=== PATIENT | male | born 1960 | race Caucasian/White ===

== ENCOUNTER → 2017-01-02 | Outpatient (CLI) | payer OTHER ==
[2017-01-02 13:17] LABS: ALKALINE PHOSPHATASE 66 U/L (45-117); ALT/SGPT 79 U/L (12-78); AST/SGOT 49 U/L (15-37); CHOLESTEROL 222 mg/dl (0-200); HDL CHOLESTEROL 44 mg/dl; LDL CHOLESTEROL CALCULATED 109 mg/dl; TRIGLYCERIDES 346 mg/dl (0-150); VERY LOW DENSITY LIPOPROT CALC 69 mg/dl
[2017-01-02 13:27] LABS: ESTIMATED AVERAGE GLUCOSE 160 mg/dl; HA1C FLAG Normal (Normal)
== END | disposition home or self-care (01) ==
LOC: C.LABMFLN 07:33
PROVIDERS: ATTEND Family Medicine
DX: I10 Essential (primary) hypertension (principal); E78.00 Pure hypercholesterolemia, unspecified; Z12.5 Encounter for screening for malignant neoplasm of prostate; R74.0 Nonspecific elevation of levels of transaminase and lactic acid dehydrogenase [LDH]; R73.09 Other abnormal glucose

== ENCOUNTER → 2017-05-15 | Outpatient (CLI) | payer OTHER ==
[2017-05-15 14:22] LABS: ESTIMATED AVERAGE GLUCOSE 169 mg/dl; HA1C FLAG Normal (Normal)
[2017-05-15 14:34] LABS: AST/SGOT 51 U/L (15-37); BLOOD UREA NITROGEN 16 mg/dl (7-18); BUN/CREATININE RATIO 14.6 (10-20); CARBON DIOXIDE 25 mmol/L (21-32); CHLORIDE 105 mmol/L (98-107); CHOLESTEROL 245 mg/dl (0-200); GLUCOSE 192 mg/dl (70-99); SODIUM 138 mmol/L (136-145)
[2017-05-15 14:37] LABS: ALKALINE PHOSPHATASE 71 U/L (45-117); ALT/SGPT 80 U/L (12-78); HDL CHOLESTEROL 49 mg/dl; LDL CHOLESTEROL CALCULATED 118 mg/dl; TRIGLYCERIDES 390 mg/dl (0-150); VERY LOW DENSITY LIPOPROT CALC 78 mg/dl
== END | disposition home or self-care (01) ==
LOC: C.LABMFLN 07:26
PROVIDERS: ATTEND Family Medicine
DX: I10 Essential (primary) hypertension (principal); E78.00 Pure hypercholesterolemia, unspecified; R73.09 Other abnormal glucose; R74.0 Nonspecific elevation of levels of transaminase and lactic acid dehydrogenase [LDH]

== ENCOUNTER → 2017-06-14 | Outpatient (CLI) | payer OTHER ==
[2017-06-14 18:17] LABS: RATIO 8.8 mcg/mg (0-30.0)
== END | disposition home or self-care (01) ==
LOC: C.LABMFLN 16:41
PROVIDERS: ATTEND Family Medicine
DX: E11.65 Type 2 diabetes mellitus with hyperglycemia (principal)

== ENCOUNTER → 2017-07-27 | Outpatient (CLI) | payer OTHER ==
[2017-07-27 18:17] LABS: ALT/SGPT 60 U/L (12-78); AST/SGOT 34 U/L (15-37); CREATININE 1.08 mg/dl (0.60-1.40); POTASSIUM 4.1 mmol/L (3.5-5.1)
== END | disposition home or self-care (01) ==
LOC: C.LABMFLN 16:30
PROVIDERS: ATTEND Family Medicine
DX: I10 Essential (primary) hypertension (principal); R74.0 Nonspecific elevation of levels of transaminase and lactic acid dehydrogenase [LDH]

== ENCOUNTER → 2017-10-30 | Outpatient (CLI) | payer OTHER ==
[2017-10-30 13:07] LABS: HEMOGLOBIN A1C 6.8 % (4.5-5.6)
[2017-10-30 13:24] LABS: BLOOD UREA NITROGEN 19 mg/dl (7-18); CREATININE 1.19 mg/dl (0.60-1.40); GLUCOSE 153 mg/dl (70-99)
[2017-10-30 13:25] LABS: ALT/SGPT 63 U/L (12-78); CALCIUM 8.9 mg/dl (8.5-10.1); CARBON DIOXIDE 29 mmol/L (21-32); CHOLESTEROL 200 mg/dl (0-200); POTASSIUM 3.9 mmol/L (3.5-5.1); SODIUM 138 mmol/L (136-145)
[2017-10-30 13:27] LABS: ALKALINE PHOSPHATASE 60 U/L (45-117); AST/SGOT 35 U/L (15-37); LDL CHOLESTEROL CALCULATED 101 mg/dl; TOTAL PROTEIN 7.5 gm/dl (6.4-8.2)
== END | disposition home or self-care (01) ==
LOC: C.LABMFLN 07:23
PROVIDERS: ATTEND Family Medicine
DX: I10 Essential (primary) hypertension (principal); R74.0 Nonspecific elevation of levels of transaminase and lactic acid dehydrogenase [LDH]; E11.65 Type 2 diabetes mellitus with hyperglycemia

== ENCOUNTER 2019-01-24 05:20 | Inpatient (IN) ==
--- NOTE | 2019-01-10 14:19 | Anesthesiology Consultation ---
Date of Service January 10, 2019 Assessment & Plan (1) Encounter for pre-operative examination: Chart Review Chart Review: Acceptable Risk for Surgery and Patient seen in Pre Admission Testing Consults Requested medical (Dr. Shaw (01/15)) Patient was seen by PCP on 01/15/19 for preoperative evaluation. Per note from that visit, "There are no medical contraindications to proceeding with L%-S1 decompression and fusion by Dr. Lira on January 24, 2019". Teaching & Discussion Pre-Anesthesia Teaching/Discussion Notes: Instructed NPO after midnight before surgery, except medications with 15 cc of water. Medication instructions provided according to the PAT guidelines. History Surgery Operation Date: 01/24/19 10:25 Proposed Procedures p L5-S1 Decompression and Fusion, Spinal Cord Monitoring - Nimesh Lira, Height/Weight Height: 5 ft 11 in Weight: 107.8 kg Allergies Allergy/AdvReac Type Severity Reaction Status Date / Time No Known Allergies Allergy Verified 01/09/19 12:47 Medications Home Medications Medication Instructions Recorded Confirmed Last Taken krill oil 500 mg PO QAM 01/09/19 01/09/19 Unknown metoprolol succinate 75 mg PO QAM 01/09/19 01/09/19 Unknown multivitamin with minerals [Men's 1 tab PO QAM 01/09/19 01/09/19 Unknown One Daily] Past Medical History Medical History Acid reflux Borderline hyperlipidemia Degenerative disc disease Diabetes mellitus, type 2 DIET CONTROLLED Fatty liver Hypertension Osteoarthritis Spinal stenosis Exercise / Class Metabolic Activity II 4-5 Yardwork/Stairs/Walk up hill (Maintanance for the railroad, 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 Able to climb FOS. Denies CP or SOB. ) Past Family History Family History Father Family history of diabetes mellitus Past Surgical History Surgical History History of arthroscopy of left knee History of carpal tunnel release of both wrists History of colonoscopy W/ POLYPECTOMY History of elbow surgery RT History of esophagogastroduodenoscopy (EGD) History of repair of rotator cuff RT History of shoulder surgery LT History of sinus surgery History of tooth extraction History of uvulectomy Past Anesthesia History No Hx of Anesthesia Complications and No Family Hx of Anesthesia Complications History of PONV No Hx of PONV and No Hx of Motion Sickness Social History Smoking Status: Never smoker Do You Dip or Chew Tobacco: Yes (1 can every 2 days x >40 years. ) Hx Alcohol Use: No Hx Substance Use: No substance use type: does not use Review of Systems Patient denies chest pain, shortness of breath, dyspnea on exertion, reflux, cough, wheezing, palpitations. +Joint Pain (Back, Knees) Physical Exam Vital Signs BP: 135/79 P: 87 R: 14 T: 98.1 SPO2: 96% on RA Constitutional + obese ENMT Thyromental Distance: < 3.5 Finger Breadths (3) Mallampati Class: II Mouth / Teeth: 1. h/o uvulectomy Neck normal visual inspection, trachea midline, + limited neck extension (somewhat limited due to discomfort) and + facial hair (Advised - patient willing to shave or trim) Respiratory normal respiratory effort Auscultation: lungs clear to auscultation bilaterally Cardiovascular Rate/Rhythm: regular rate and regular rhythm Heart Sounds: no murmur Vessels: no carotid bruit Neurologic moves all extremities Psychiatric Orientation: alert and oriented x 3 Testing Laboratory Results 01/10/19 14:55 01/10/19 14:55 01/10/19 01/10/19 01/10/19 14:55 14:55 Unknown PT 10.3 INR 1.0 APTT 24.0 Urine Color Yellow Urine Appearance Clear Urine pH 5.0 Ur Specific Proctor 1.030 Urine Protein Negative Urine Glucose (UA) 3+ H Urine Ketones Trace H Urine Nitrite Negative Ur Leukocyte Esterase Negative Blood Type A Negative Antibody Screen NEGATIVE Laboratory Tests 01/15/19 15:24 Hemoglobin A1c 6.9 H Electrocardiogram Date: 01/10/19 Findings: + NSR @ (85) Nonspecific T wave abnormality Chest X-Ray Date: 01/10/19 Findings: + NAD FINDINGS: Cardiomediastinal and hilar silhouettes are within normal limits. Mild to moderate right hemidiaphragmatic elevation. No pneumothorax, pleural effusion, focal airspace consolidation or overt pulmonary edema. Indeterminate 5 mm nodular focus about the left midlung. Degenerative changes of the shoulders and spine. IMPRESSION: 1. No acute process. 2. Indeterminate 5 mm nodular focus of the left midlung may be secondary to summation density.
--- NOTE | 2019-01-10 14:23 | PAT Medication Instructions ---
Medication Instructions Date of Service January 10, 2019 Home Medications krill oil 500 mg PO QAM metoprolol succinate 75 mg PO QAM multivitamin with minerals [Men's One Daily] 1 tab PO QAM STOP taking 2 weeks before surgery krill oil 500 mg PO QAM DO NOT take the morning of surgery multivitamin with minerals [Men's One Daily] 1 tab PO QAM Take morning of surgery With a small sip of water, OTHERWISE NOTHING TO EAT OR DRINK AFTER MIDNIGHT: metoprolol succinate 75 mg PO QAM Other Notes If you have any questions please call us at [phone] or [phone] or [phone] or [phone]
--- NOTE | 2019-01-10 15:20 | XRay Report ---
XR chest Pre-admission PA/Lat HISTORY: 58 years-old Male pat preoperative exam. No acute chest complaints COMPARISON: None available TECHNIQUE: PA and lateral views of the chest FINDINGS: Cardiomediastinal and hilar silhouettes are within normal limits. Mild to moderate right hemidiaphrag matic elevation. No pneumothorax, pleural effusion, focal airspace consolidation or overt pulmonary e igor. Indeterminate 5 mm nodular focus about the left midlung. Degenerative changes of the shoulders and spine. IMPRESSION: 1. No acute process. 2. Indeterminate 5 mm nodular focus of the left midlung may be secondary to summation density. The above report was generated using voice recognition software. It may contain grammatical, syntax o r spelling errors. Electronically signed by: Nile Contreras M.D. 01/10/2019 3:19 PM
[2019-01-10 16:02] LABS: Appearance Urine Clear (Clear); Bilirubin Urine Negative (Negative); Blood Urine Negative (Negative); Color Urine Yellow; Glucose Urine UA 3+ (Negative); Ketones Urine Trace (Negative); Leukocyte Esterase Urine Negative (Negative); Nitrite Urine Negative (Negative); Protein Urine Negative (Negative); Urobilinogen Urine Negative (Negative)
[2019-01-10 16:03] LABS: Basophils # (auto) 0.03 K/uL (0-0.2); Basophils % (auto) 0.5 %; Eosinophils # (auto) 0.09 K/uL (0-0.5); Eosinophils % (auto) 1.5 %; Hemoglobin 15.2 g/dL (14.0-18.0); Immature Granulocytes # (auto) 0.02 K/uL (0.00-0.02); Immature Granulocytes % (auto) 0.3 %; Lymphocytes # (auto) 2.06 K/uL (1.2-3.4); Lymphocytes % (auto) 35.2 %; Mean Corpuscular Hgb Conc 37.1 g/dL (32-36); Mean Platelet Volume 9.8 fL (7.4-10.4); Monocytes # (auto) 0.52 K/uL (0.11-0.59); Monocytes % (auto) 8.9 %; Neutrophils # (auto) 3.14 K/uL (1.4-6.5); Neutrophils % (auto) 53.6 %; Platelet Count 189 K/uL (130-400); RDW Coefficient of Variation 13.2 % (11.5-14.5); RDW Standard Deviation 42.2 fL (36.4-46.3); Red Blood Count 4.66 M/uL (4.7-6.1); White Blood Count 5.86 K/uL (4.8-10.8)
[2019-01-10 16:49] LABS: BUN Creatinine Ratio 15.5 (10-20); Calcium 8.7 mg/dl (8.5-10.1); Creatinine Clr Calc Pharmacy 92.8 ml/min; Est GFR (African American) 85.6; Est GFR (Non-African American) 73.8; Potassium 4.4 mmol/L (3.5-5.1)
[2019-01-10 16:50] LABS: Partial Thromboplastin Ratio 0.9; Prothrombin Time 10.3 Seconds (9.0-12.0)
[2019-01-24] MEDS ORDERED: CeleBREX 200 MG CAP PO SCH (06:00)
[2019-01-24] MEDS ORDERED: GABAPENTIN 300 MG x 2 PO SCH (06:00)
[2019-01-24] MEDS ORDERED: ACETAMINOPHEN 500 MG TAB PO SCH (06:00)
[2019-01-24] MEDS ORDERED: LR 15ML/HR IV SCH (06:00)
[2019-01-24] MEDS ORDERED: CEFAZOLIN 2000MG 2,000 MG/15 ML SYR IV SCH (06:00)
[2019-01-24] MEDS ORDERED: HYDROmorphone INJ 2 MG/ML SYR/VIAL ONE ×2 (06:40→09:28)
[2019-01-24] MEDS ORDERED: MIDAZOLAM HCL 1 MG/ML 2ML VIAL ONE (06:40)
[2019-01-24] MEDS ORDERED: fentaNYL citrate 100 MCG/2 ML VIAL ONE ×4 (06:40→08:47)
[2019-01-24] MEDS ORDERED: LIDOCAINE HCL 2% 2 ML VIAL/AMP(20MG/ML) INFIL ONE (06:41)
[2019-01-24] MEDS ORDERED: DEXAMETHASONE SOD INJ 4 MG/ML VIAL ONE (06:41)
[2019-01-24] MEDS ORDERED: ONDANSETRON INJ 2 MG/ML 2 ML VIAL ONE (06:41)
[2019-01-24] MEDS ORDERED: ROCURONIUM BROMIDE 10 MG/ML 5 ML VIAL ONE (06:41)
[2019-01-24] MEDS ORDERED: NEOSTIGMINE METHYLSULFATE 1 MG/ML 10ML VIAL ONE (06:41)
[2019-01-24] MEDS ORDERED: PROPOFOL IV EMULSION 10 MG/ML 20 ML VIAL IV ONE (06:41)
[2019-01-24] MEDS ORDERED: GLYCOPYRROLATE 0.2 MG/ML VIAL ONE (06:41)
[2019-01-24] MEDS ORDERED: BUPIVACAINE/EPINEPHRINE 0.5% MPF 1:200,000 30 ML VIAL ONE (06:56)
[2019-01-24] MEDS ORDERED: BACITRACIN INJ 50,000 UNIT VIAL ONE (06:57)
[2019-01-24] MEDS ORDERED: HYDROmorphone INJ 1 MG/ML SYRINGE IV PRN (07:21)
[2019-01-24] MEDS ORDERED: ePHEDrine sulfate 50 MG/ML AMP IV PRN (07:21)
[2019-01-24] MEDS ORDERED: ATROPINE SULFATE 0.1 MG/ML 10ML SYR IV PRN (07:21)
--- NOTE | 2019-01-24 07:26 | History & Physical Bridge Note ---
Date of Service January 24, 2019 History & Physical Bridge Note I have examined the patient, reviewed the History & Physical and in the interval since the performance of the History & Physical I have noted the following changes of clinical significance: no changes noted
--- NOTE | 2019-01-24 07:28 | History & Physical Report ---
Date of Service January 24, 2019 Assessment & Plan (1) Spinal stenosis, lumbar region with neurogenic claudication: L5-S1 decompression and fusion Present on Admission?: Yes History of Present Illness Chief Complaint: Back and leg pain Primary Care Provider: Jimmie Shaw MD Is a 58-year-old male that presents with chronic persistent back and leg pain is here for surgical intervention. Allergies Allergy/AdvReac Type Severity Reaction Status Date / Time No Known Allergies Allergy Verified 01/24/19 05:48 Home Medications Home Medications Medication Instructions Recorded Confirmed Type krill oil 500 mg PO QAM 01/09/19 01/24/19 History metoprolol succinate 75 mg PO QAM 01/09/19 01/24/19 History multivitamin with minerals [Men's 1 tab PO QAM 01/09/19 01/24/19 History One Daily] Past Med/Surg History Family History Father Family history of diabetes mellitus Social History Preferred Language: Yi Communication Ability: Effective Business Continuity Planning Director Required: No Beliefs That Will Affect Care: None Current Living Situation: Spouse Other Information That Helps Us Care for You: No Feels Safe at Home: Yes Safety Concerns: Feels Safe At This Time Smoking Status: Never smoker Do You Dip or Chew Tobacco: Yes (1 can every 2 days x >40 years. ) Second Hand Exposure: No Tobacco Cessation Education Requested by Patient: No Hx Alcohol Use: No Hx Substance Use: No Physical Exam Vital Signs (Past 24 Hours): Last Vital Signs Temp 36.4 C L 01/24/19 05:52 Pulse 65 01/24/19 05:52 Resp 18 01/24/19 05:52 BP 131/88 01/24/19 05:52 Pulse Ox 97 01/24/19 05:52 Physical Exam: Patient is alert and oriented neurologically intact.
[2019-01-24] MEDS ORDERED: ePHEDrine sulfate 50 MG/ML SYR ONE (08:26)
[2019-01-24] MEDS ORDERED: FLOSEAL HEMOSTATIC MATRIX 10ML TOP ONE (09:00)
--- NOTE | 2019-01-24 09:29 | Operative Report ---
Post Operative Report Pre & Post Diagnosis Operation Date: 01/24/19 07:45 Pre-Op Diagnosis: Spinal stenosis, lumbar region with neurogenic claudication Post-Op Diagnosis: Spinal stenosis, lumbar region with neurogenic claudication Procedure Operation Date: 01/24/19 07:45 Actual Procedures #1 lumbar decompression with bilateral medial facetectomies foraminotomies L4-5 L5-S1. #2 posterior spinal fusion L5-S1. #3 placement posterior instrumentation L5-S1 per #4 interbody fusion L5-S1. #5 placement of titanium 11 x 26 mm cage L5-S1 per #6 placement of local autograft in the posterior lateral gutters per #7 placement infuse collagen sponge combined with master graft in the posterior lateral gutters and ostial amp in the interbody space. Surgeon Nimesh Lira, DO Lasting Room Machine Operator Fady Coleman Estimated Blood Loss 125 Findings See Below The patient is 5 foot and 11 inches tall weighing 107 kg with a BMI of 33. Patient's body habitus added considerable technical difficulty with exposure decompression and placement of implants. This added at least 25% increase in operative time. Specimens None Indications This is a 58-year-old male presents with back and leg pain. Failing extensive course of nonoperative care elected to go the above-mentioned procedure. Description of Procedure Patient was met with identified and informed consent obtained. He was then taken to the operative suite underwent ablation placed in a prone position on the Eugene table on top of the Vidal frame. All bony prominences well-padded eyes inspected to ensure no external pressure placed upon the peer at this point the lumbar spine was prepped and draped in a normal sterile fashion. Sharp dissection with the assistance of Bovie cautery was performed down to and exposing the lamina and transverse processes of L5 and the sacral ala bilaterally. From a caudal to cephalad fashion complete laminectomy of L5 partial laminectomy of L4 was performed including medial facetectomies and foraminotomies bilaterally. Pedicle screws were then placed in L5 and S1 levels bilaterally with assistance of fluoroscopy and appropriate size josiane placed. Through a transforaminal approach and left complete discectomy was performed in plate graded to subcortical bleeding bone and a 11 x 26 mm titanium cage filled ostium bone graft tapped in position. The rods were then locked in final position bilaterally. Processes of L5 and the sacral ala bur to subcortical bleeding bone. Infuse collagen sponge mass graft local autograft placed in the posterior lateral gutters. 15 round CONCEPCIÓN drain inserted. The incision was then closed with 1 Vicryl in the fascia 2-0 Vicryl substantially and 4 Monocryl for final skin closure. Steri-Strip sterile dressings placed. Patient awakened taken to PACU stable condition. Please note my coworker present at the entire procedure involved patient positioning complex portions of the surgery and final skin closure. I attest to the content of the Intraoperative Record and any orders documented therein. Any exceptions are noted below.
--- NOTE | 2019-01-24 09:40 | Fluoroscopy Report ---
FL lumbar spine 2-3V CLINICAL HISTORY: L5-S1 DECOMPRESSION AND FUSION COMPARISON STUDY: None. FLUOROSCOPY TIME: 17 seconds. FINDINGS: 2 fluoroscopic spot images of the lumbar spine demonstrate posterior decompression and fusi on at L5-S1 with pedicle screws and rods. The hardware appears intact. A disc spacer is noted. IMPRESSION: Fluoroscopy provided for posterior decompression and fusion at L5-S1. Electronically signed by: Lee Estrada M.D. 01/24/2019 9:39 AM
[2019-01-24] MEDS ORDERED: KETOROLAC 30 MG/ML VIAL ONE (09:55)
[2019-01-24] MEDS ORDERED: LORazepam 0.5 MG/1 ML VIAL IV PRN (10:45)
[2019-01-24] MEDS ORDERED: ACETAMINOPHEN 500 MG TAB PO PRN (10:45)
[2019-01-24] MEDS ORDERED: ALUMINUM/MAGNESIUM SUSP 30 ML UDC PO PRN (10:45)
[2019-01-24] MEDS ORDERED: SOD PHOSPHATE/SOD BIPHOSPHATE ENEMA 132 ML BTL PR PRN (10:45)
[2019-01-24] MEDS ORDERED: FAMOTIDINE 20 MG TAB PO PRN (10:45)
[2019-01-24] MEDS ORDERED: ONDANSETRON INJ 2 MG/ML 2 ML VIAL IV PRN (10:45)
[2019-01-24] MEDS ORDERED: DO NOT ADMINISTER PNEUMOCOCCAL VACCINE PRN (10:45)
[2019-01-24] MEDS ORDERED: PROMETHAZINE HCL 12.5 MG in SODIUM CHLORIDE 0.9% 50 ML IV PRN (10:45)
[2019-01-24] MEDS ORDERED: METOCLOPRAMIDE HCL INJ 5 MG/ML 2 ML VIAL IV PRN (10:45)
[2019-01-24] MEDS ORDERED: BISACODYL 10 MG SUPP PR PRN (10:45)
[2019-01-24] MEDS ORDERED: ACETAMINOPHEN 1,000 MG/100 ML VIAL IV PRN (10:45)
[2019-01-24] MEDS ORDERED: HYDROmorphone INJ 0.5 MG/0.5 ML SYR IV PRN (10:45)
[2019-01-24] MEDS ORDERED: MAGNESIUM HYDROXIDE SUSP 30 ML UDC PO PRN (10:45)
[2019-01-24] MEDS ORDERED: DO NOT ADMINISTER FLU VACCINE PRN (10:45)
[2019-01-24] MEDS ORDERED: LORazepam 0.5 MG TAB PO PRN (10:45)
[2019-01-24] MEDS: KETOROLAC 30 MG/ML VIAL IV SCH ×3 (11:13→22:30)
[2019-01-24] MEDS: LACTATED RINGER'S 1,000 ML IV SCH ×3 (11:14→22:31)
--- NOTE | 2019-01-24 11:48 | Anesthesiology Progress Note ---
Date of Service January 24, 2019 Anesthesia Post Procedure Vital Signs Vital Signs: Temp Pulse Pulse Resp BP Pulse Ox 01/24/19 11:30 36.6 C 73 18 128/80 94 01/24/19 10:59 36.6 C 74 18 128/77 98 01/24/19 10:30 36.9 C 78 83 17 131/76 98 01/24/19 10:20 75 16 129/71 93 01/24/19 10:10 78 19 120/76 97 01/24/19 10:00 78 16 119/82 95 01/24/19 09:50 36.2 C L 83 10 L 135/74 96 01/24/19 05:52 36.4 C L 65 18 131/88 97 Pain Intensity Left Lower Back: Pain Intensity: 3 Transfer of Care Handoff Completed per policy Notes Mental Status: alert / awake / arousable Patient Amnestic to Procedure: Yes Nausea / Vomiting: adequately controlled Pain: adequately controlled Airway Patency, RR, SpO2: stable & adequate BP & HR: stable & adequate Hydration State: stable & adequate Anesthetic Complications: no major complications apparent and Pt Satisfied with anesthetic care
[2019-01-24] MEDS: CEFAZOLIN 2000MG 2,000 MG/15 ML SYR IV SCH (16:54)
[2019-01-24] MEDS: OXYCODONE HCL IR 5 MG TAB (IMMEDIATE RELEASE) PO PRN (19:11)
[2019-01-24] MEDS: DOCUSATE SODIUM/SENNA 50/8.6MG TAB PO SCH (20:50)
[2019-01-25] MEDS: CEFAZOLIN 2000MG 2,000 MG/15 ML SYR IV SCH
[2019-01-25] MEDS: POLYETHYLENE (MIRALAX) 17 GM PACK PO SCH ×2 (05:20→12:49)
[2019-01-25] MEDS: KETOROLAC 30 MG/ML VIAL IV SCH (05:20)
[2019-01-25 06:12] LABS: Hematocrit (blood only) 36.3 % (42-52); Immature Granulocytes # (auto) 0.04 K/uL (0.00-0.02); Immature Granulocytes % (auto) 0.3 %; Lymphocytes # (auto) 0.79 K/uL (1.2-3.4); Lymphocytes % (auto) 5.5 %; Mean Corpuscular Hgb Conc 35.8 g/dL (32-36); Mean Corpuscular Volume 89.6 fL (80-100); Mean Platelet Volume 10.1 fL (7.4-10.4); Monocytes # (auto) 0.72 K/uL (0.11-0.59); Neutrophils # (auto) 12.86 K/uL (1.4-6.5); Neutrophils % (auto) 89.2 %; Platelet Count 157 K/uL (130-400); RDW Coefficient of Variation 13.4 % (11.5-14.5); RDW Standard Deviation 44.2 fL (36.4-46.3); Red Blood Count 4.05 M/uL (4.7-6.1); White Blood Count 14.41 K/uL (4.8-10.8)
[2019-01-25 07:10] LABS: BUN Creatinine Ratio 19.2 (10-20); Calcium 8.9 mg/dl (8.5-10.1); Creatinine Clr Calc Pharmacy 82.8 ml/min; Est GFR (African American) 74.9; Est GFR (Non-African American) 64.6; Potassium 4.3 mmol/L (3.5-5.1)
[2019-01-25] MEDS: CEROVITE ADV FORMULA TAB PO SCH (08:51)
[2019-01-25] MEDS: METOPROLOL SUCC 50MG EXT REL TAB PO SCH (08:52)
--- NOTE | 2019-01-25 09:03 | Orthopedic Progress Note ---
Date of Service January 25, 2019 Assessment & Plan (1) Spinal stenosis, lumbar region with neurogenic claudication: At this time would continue with physical [facility] at [facility] regiment anticipate discharge home Sunday. Present on Admission?: Yes Subjective Patient's back pain is controlled left leg symptoms markedly improved. Physical Exam Physical Exam: On exam he is in the chair at the bedside. Is good strength testing. Appears comfortable. Results & Data Vital Signs (Past 12 Hours) Vital Signs Temp Pulse Resp BP Pulse Ox 01/25/19 03:01 36.5 C 87 16 127/69 97 01/24/19 23:02 36.4 C L 83 18 99/58 L 93
--- NOTE | 2019-01-25 11:31 | Anesthesiology Progress Note ---
Date of Service January 25, 2019 Anesthesia Post Procedure Vital Signs Vital Signs: Temp Pulse Resp BP Pulse Ox 01/25/19 09:09 37.1 C 83 18 131/68 95 01/25/19 03:01 36.5 C 87 16 127/69 97 01/24/19 23:02 36.4 C L 83 18 99/58 L 93 01/24/19 20:05 36.9 C 85 16 101/63 93 01/24/19 15:20 36.9 C 82 16 112/74 95 01/24/19 13:56 36.8 C 75 18 138/70 91 01/24/19 12:35 36.6 C 82 18 131/75 94 Pain Intensity Left Lower Back: Pain Intensity: 2 Back: Pain Intensity: 2 Notes Mental Status: alert / awake / arousable and participated in evaluation Patient Amnestic to Procedure: Yes Nausea / Vomiting: adequately controlled Pain: adequately controlled Airway Patency, RR, SpO2: stable & adequate Hydration State: stable & adequate Anesthetic Complications: no major complications apparent and Pt Satisfied with anesthetic care
[2019-01-25] MEDS: OXYCODONE HCL IR 5 MG TAB (IMMEDIATE RELEASE) PO PRN (12:05)
[2019-01-25] MEDS: DOCUSATE SODIUM/SENNA 50/8.6MG TAB PO SCH (22:09)
[2019-01-26] MEDS: OXYCODONE HCL IR 5 MG TAB (IMMEDIATE RELEASE) PO PRN ×2 (06:58→12:17)
[2019-01-26] MEDS: CEROVITE ADV FORMULA TAB PO SCH (08:51)
[2019-01-26] MEDS: METOPROLOL SUCC 50MG EXT REL TAB PO SCH (08:51)
--- NOTE | 2019-01-26 11:17 | Discharge Summary ---
Date of Service January 26, 2019 Admission HPI Per Admitting Provider Is a 58-year-old male that presents with chronic persistent back and leg pain is here for surgical intervention. Principal Diagnosis Lumbar spinal stenosis with neurogenic claudication Discharge Data Allergies Allergy/AdvReac Type Severity Reaction Status Date / Time No Known Allergies Allergy Verified 01/24/19 05:48 Consultations 01/24/19 10:45 Consult Case Management - Discharge Planning Routine Procedures Performed Operation Date: 01/24/19 07:45 Actual Procedures p L5-S1 Decompression and Fusion(Not Applicable) - Nimesh Lira DO Ordered Studies 01/24/19 07:45 FL fluoroscopy <1hr Routine FL lumbar spine 2-3V Routine Hospital Course (1) Spinal stenosis, lumbar region with neurogenic claudication: Patient underwent lumbar decompression fusion tolerated as well as taken to the orthopedic floor postoperative. Postop day 1 he was up and in bleeding nicely. Progressive postop day #2. Drain decreasing appropriately. Leg pain improved. Subsequently discharged home. Discharge orders and instructions can be found in the chart Total Time Total Time Spent Total Time Spent (In Minutes): 20 minutes Discharge Plan Discharge Items Patient Disposition: Home - Self-Care Reason For Visit: LUMBAR SPINAL STENOSIS W/OUT NEUROGENIC CLAUDICATI Discharge Diagnosis: Lumbar spinal stenosis with neurogenic claudication Discharge Goals: Decrease discomfort Activity: Per 'Additional Instructions' section Non-emergency contact: Primary Care Provider Call non-emergency contact if: you have any medication questions Follow-up/Referrals: Jimmie Shaw MD [Primary Care Provider] - Diet: Regular Addtl Provider Instructions: ACTIVITY RECOMMENDATIONS: SELF CARE INSTRUCTIONS AFTER THORACIC/LUMBAR FUSIONS 1. You may walk to your tolerance. It is good exercise for your legs and back. Expect some back and intermittent leg aches and pains. 2. You may perform "counter-top" level activities (make a sandwich, elda with a project, etc.). 3. No bending or lifting of more than 10 pounds or back twisting of any nature (roll like a log when turning in bed). 4. You may ride in a car for 20-30 minutes at a time. No driving until after your first visit with your doctor. 5. Frequent changes of position and restricting sitting to 30 minutes at a time will help limit the amount of back spasms and stiffness you may experience. 6. You may discontinue the use of ambulatory aids (cane, crutches, etc.) once your strength and confidence allow. 7. You may core machine operator the shower and let water strike your incision when you arrive home at least once daily. Do not take a tub bath, sit in a hot tub or go into a swimming pool until after your first recheck in the office. SPECIAL CARE INSTRUCTIONS: VERY IMPORTANT TO READ AND REVIEW A. Your surgical incision has been closed with a cosmetic suture under the skin that will dissolve in about 6 weeks. In 14 days, you can use a pair of clean scissors and cut the suture that is left outside of the skin at the ends of your incision. 1. The small skin tapes can be removed 7 days after surgery if they have not fallen off by that point. 2. You may keep the wound open to air as much as possible to promote healing after post-op day number 5 unless told otherwise by your doctor. 3. If you think the wound looks like it is becoming infected (redness or worsening drainage) and/or you are experiencing fever, chill or worsening back pain and muscle spasms, contact the office so that we may evaluate you as soon as possible. B. Complications are uncommon, but please contact us if you have any signs or symptoms of: 1. wound infection (fever higher than 102.5 degrees F, redness, separation of wound, drainage, or increasing pain from the incision) 2. blood clots in legs (pain, swelling, redness and warmth in legs) 3. urinary tract infection (fever higher than 102.5 degrees F, burning upon urination or increased frequency of urination) 4. nerve problems (inability to walk on your toes or heels, numbness, loss of bowel or bladder control) 5. any other symptoms that concern you C. Please call the office at if you have any concerns or questions about your operation or recovery. D. No smoking! Smoking drastically decreases the chance of a solid fusion. E. Do not take any anti-inflammatory medications (Indocin, Advil, Motrin, Aspirin, Naprosyn, etc.) as these may inhibit the chance of a solid fusion. Tylenol is okay to take for pain. MANAGING PAIN AFTER SPINAL SURGERY 1. Narcotic medication is intended for short-term use and will be provided for surgical pain. Surgical pain usually lasts for a period of 4-6 weeks. Narcotic medication includes Percocet, Vicodin, Darvocet, Tylenol #3 or Lortab. 2. Longer-term pain is more appropriately treated with non-narcotic medication such as Tylenol ES. 3. Muscle spasm is not appropriately treated with narcotics. Muscle relaxers such as Soma, Flexeril or Skelaxin can be used along with Tylenol ES. 4. Remember that we all live with some "aches and pains". This is not unusual or uncommon after an injury or as we get older. a. Back pain is expected and may include muscle spasms for 4 to 6 weeks after surgery. The pain should gradually improve. If the pain worsens for no apparent reason, please contact the office. b. Intermittent leg pain may also be experienced and should not be concerned about unless it worsens for no apparent reason. If so, please contact the office. 5. We will provide appropriate medication within the normal guidelines of their prescribed use. We will also be very cautious and aware of potential abuse and extended duration of patients' medication needs. a. Pain medications are for your comfort and to assist with sleep and rest so that the tissue can heal. They are not provided in order to return to normal activity and should not be used through the day. To do so or worsening pain at night can result from ongoing tissue damage and development of tolerance to the prescribed medicine. 6. Please allow 2-3 days to process refills. Prescriptions will not be mailed but must be picked up at the office. FOLLOW UP VISIT: Keep your scheduled follow-up appointment. Any questions, please call the office at . Prescriptions: New oxycodone 5 mg Tablet 5 mg PO Q4H PRN (Reason: Pain) Qty: 30 RF: 0 Continued metoprolol succinate 50 mg Tablet Extended Release 24 Hr 75 mg PO QAM RF: 0 multivitamin with minerals [Men's One Daily] Tablet 1 tab PO QAM RF: 0 krill oil 500 mg Capsule 500 mg PO QAM RF: 0 Stand-Alone Forms: [facility] Discharge Orders: Discharge Order (Routine); Ordered 01/26/19 Ordered By: Nimesh Lira Admission Data Admit Date/Time: 01/24/19 09:32 Attending Provider: Nimesh Lira Admit Provider: Nimesh Lira Primary Care Provider: Jimmie Shaw Service: Surgical Services
== END 2019-01-26 14:01 | disposition home or self-care (01) ==
LOC: ASU 05:20 → 3E 09:32